=== PATIENT | male | born 1970 | race Caucasian/White ===

== ENCOUNTER 2019-05-04 11:18 | Emergency (ER) | payer OTHER ==
[~2019-05-04] VITALS: Ht 185.4 cm; Wt 108.9 kg
[2019-05-04 11:44] LABS: ABSOLUTE BASOPHILS 0.1 thou/uL (0.0-0.2); ABSOLUTE EOSINOPHILS 0.3 thou/uL (0.0-0.7); ABSOLUTE LYMPHOCYTES 1.3 thou/uL (0.8-5.3); ABSOLUTE MONOCYTES 0.6 thou/uL (0.0-1.2); BASOPHILS 1.9 %; HEMATOCRIT 49.4 % (42.0-52.0); HEMOGLOBIN 17.2 gm/dL (14.0-18.0); LYMPHOCYTES 30.4 %; MCH 30.5 pg (26.0-34.0); MCHC 34.8 g/dL (28.0-37.0); MCV 87.6 fL (80.0-100.0); MONOCYTES 14.3 %; MPV 8.7 fl. (7.2-11.1); NUCLEATED RBCS 0 /100WBC; PLATELET COUNT* 85 thou/uL (150-400); POLYS 47.4 %; RBC 5.64 mil/uL (4.50-6.00); RDW-CV 13.4 % (10.5-14.5); WBC 4.2 thou/uL (4.0-11.0)
[2019-05-04 11:56] LABS: CALCIUM 8.7 mg/dL (8.5-10.1); CREATININE 1.1 mg/dL (0.6-1.3); POTASSIUM 4.4 mmol/L (3.5-5.1)
[2019-05-04 12:08] LABS: ALBUMIN 3.5 g/dL (3.4-5.0); CK-MB MASS 1.2 ng/mL (<0.5-3.6); MAGNESIUM 1.7 mg/dL (1.8-2.4); TOTAL BILIRUBIN 0.6 mg/dL (<0.1-1.0)
[2019-05-04 12:30] LABS: APTT 24.3 Seconds (25.0-31.3); INR 1.1; PROTIME 10.3 Seconds (9.20-11.50)
[2019-05-04 14:29] VITALS: BP 111/68
--- NOTE | 2019-05-04 15:40 | EKG ---
[place] [address] ELECTROCARDIOGRAM REPORT Name: DOMINIQUE LUNDBERG Room: [facility]#: [id number] Admission: 05/04/19 Attend Phys: Discharge: 05/04/19 Date of : 66 Report #: [id number] THIS REPORT FOR: //name// [facility] ED Test Date: 2019-05-04 Test Time: 11:24:39 Pat Name: DOMINIQUE LUNDBERG Department: Room: Gender: M Nurse Charge Rn: : [id number] Requested By: Moris Betancur Order Number: [id number] MD: Joe Alex Measurements Intervals [place] Rate: 88 P: 18 DC: 144 QRS: -49 QRSD: 83 T: 54 QT: 341 QTc: 413 Interpretive Statements Sinus rhythm RSR' in V1 or V2, right VCD Left ventricular hypertrophy Inferior infarct, old Baseline wander in lead(s) I,III,aVR,aVL,aVF,V2 No previous ECG available for comparison Electronically Signed On 05-04-2019 15:40:45 [employer] by Joe Alex [email or web address] <ELECTRONICALLY SIGNED> By: Joe Alex MD, [facility] 05/04/19 1540 1124 [id number] Joe Alex MD, [facility] /EPI
== END 2019-05-04 14:30 | disposition home or self-care (01) ==
LOC: M.ERS 11:18
PROVIDERS: Family Medicine
DX: R07.89 Other chest pain (principal); I10 Essential (primary) hypertension; Z98.890 Other specified postprocedural states